=== PATIENT | male | born 1960 | race Caucasian/White ===

== ENCOUNTER → 2019-04-17 17:13 | Outpatient (BNVA) | payer OTHER, SELFPAY | PROVIDERS: Visit Provider Nurse Practitioner Family | DX: K21.9 Gastro-esophageal reflux disease without esophagitis (principal); I49.3 Ventricular premature depolarization; Z72.0 Tobacco use; R07.9 Chest pain, unspecified; R20.0 Anesthesia of skin; I10 Essential (primary) hypertension | CPT/HCPCS: 80053; 80061; 82550; 82553; 83880; 85025 ==